=== PATIENT | male | born 1970 | race Caucasian/White ===

== ENCOUNTER 2021-05-22 15:34 | Emergency (ER) | payer OTHER ==
[2021-05-22 16:22] VITALS: RESP 20; TEMP 99.3
[2021-05-22] MEDS ORDERED: HYDROcodone/APAP 5-325MG 1 EACH TAB PO STA (16:58)
[2021-05-22] MEDS ORDERED: DIPH,PERTUS(ACELL)TETVAC-LF 0.5 ML VIAL IM ONE (16:58)
[2021-05-22] MEDS ORDERED: LIDOCAINE 1% INJ 10MG/ML (20 ML MDV) SQ ONE (17:02)
--- NOTE | 2021-05-22 17:29 | XR ---
EXAMINATION TYPE: XR finger LT DATE OF EXAM: 05/22/2021 COMPARISON: NONE HISTORY: Laceration TECHNIQUE: 3 views FINDINGS: There is transverse fracture through the base of the distal phalanx of the left index finge r. There is laceration deformity. IMPRESSION: Laceration deformity with fracture of the distal phalanx of the index finger left hand. N o foreign body seen.
[2021-05-22] MEDS ORDERED: CEPHALEXIN 500MG STARTER PACK 4 CAP BTL PO STA (17:33)
--- NOTE | 2021-05-22 18:15 | ED ---
General Adult HPI - General Chief complaint: Wound/Laceration Stated complaint: Lt Hand Lac Source: patient Mode of arrival: ambulatory Limitations: no limitations - History of Present Illness Initial comments: 50-year-old male presents to the emergency room for a chief complaint of laceration to the left second digit. Patient was using a circular saw today when he cut through the tip of his finger. Patient is not up-to-date on tetanus. Patient states that he feels he probably cut through the bone. Patient has no other complaints at this time including shortness of breath, chest pain, abdominal pain, nausea or vomiting, headache, or visual changes.t - Related Data Previous Rx's Medication Instructions Recorded Cephalexin [Keflex] 500 mg PO QID 7 Days #28 cap 05/22/21 Allergies Allergy/AdvReac Type Severity Reaction Status Date / Time No Known Allergies Allergy Verified 05/22/21 16:19 Review of Systems ROS Statement: Those systems with pertinent positive or pertinent negative responses have been documented in the HPI. ROS Other: All systems not noted in ROS Statement are negative. Past Medical History Past Medical History: No Reported History History of Any Multi-Drug Resistant Organisms: None Reported Past Surgical History: Hernia Repair Past Psychological History: No Psychological Hx Reported Smoking Status: Current every day smoker Past Alcohol Use History: Daily Past Drug Use History: Marijuana General Exam Limitations: no limitations General appearance: alert, in no apparent distress Head exam: Present: atraumatic Eye exam: Present: normal appearance, PERRL, EOMI. Absent: scleral icterus, conjunctival injection ENT exam: Present: normal exam, mucous membranes moist Neck exam: Present: normal inspection, full ROM. Absent: tenderness Respiratory exam: Present: normal lung sounds bilaterally. Absent: respiratory distress, wheezes Cardiovascular Exam: Present: regular rate, normal rhythm, normal heart sounds Extremities exam: Present: normal capillary refill (Capillary refill less than 2 seconds in left hand. There is sluggish cap refill in the distal aspect of the left second digit), other (Patient has near amputation of the distal phalanx of the left second digit with laceration through the radial aspect involving the proximal nail fold.). Absent: full ROM (Patient unable to flex the distal phalanx of the left second digit.) Course Vital Signs 05/22/21 16:20 Temperature 99.3 F Pulse Rate 76 Respiratory 20 Rate Blood Pressure 176/100 O2 Sat by Pulse 97 Oximetry Procedures - Laceration Laceration #1 Consent Obtained: verbal consent Indication: laceration Site: hand Size (cm): 3 Description: avulsion Depth: [id number] Anesthetic Used: lidocaine 1% Anesthesia Technique: nerve block Amount (mls): 4 Pre-repair: wound explored, irrigated extensively Type of Sutures: nylon Size of Sutures: 5-0 Number of Sutures: 6 Technique: simple, interrupted Patient Tolerated Procedure: well, no complications Medical Decision Making - Medical Decision Making X-rays obtained which shows a laceration deformity with fracture of the distal phalanx of the index finger left hand. No foreign body seen. This was irrigated with saline pressure irrigation the wound was repaired it. There is sluggish cap refill in the distal aspect. Discussed with patient that there is concern that this will not have enough blood flow and will need to be removed by orthopedics. Patient does not live in town and will call orthopedics in his hometown tomorrow. Patient was given Keflex for open fracture. He was updated on tetanus. Wound was wrapped. Splint applied. He will return here for any worsening symptoms. 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 Take Motrin and Tylenol for pain. If pain is severe take Tylenol [address] operate machinery while taking this. Follow up with orthopedics this week. Keep wound clean with gentle soap and water. Stitches will need to be removed but talk to orthopedics about this. Return to the emergency room for any worsening symptoms. Prescriptions: Cephalexin [Keflex] 500 mg PO QID 7 Days #28 cap Is patient prescribed a controlled substance at d/c from ED?: No Referrals: Louis Goss DO [Primary Care Provider] - 1-2 days Alejandro Ceja DO [Doctor of Osteopathic Medicine] - 1-2 days Time of Disposition: 18:13
[2021-05-22 18:40] VITALS: BP 149/91; PULSE 66
== END 2021-05-22 18:40 | disposition home or self-care (01) ==
LOC: EC 15:34
DX: S62.631B Displaced fracture of distal phalanx of left index finger, initial encounter for open fracture (principal); F17.200 Nicotine dependence, unspecified, uncomplicated; F12.90 Cannabis use, unspecified, uncomplicated; Z89.022 Acquired absence of left finger(s); W31.2XXA Contact with powered woodworking and forming machines, initial encounter
CPT/HCPCS: 99283; 90471; 12002; 73140; 90715; J2001